=== PATIENT | female | born 2000 | race Caucasian/White ===

== ENCOUNTER 2018-02-09 18:54 | Emergency (ER) | payer MEDICAID, SELFPAY ==
[2018-02-09 20:01] LABS: KETONE, URINE AUTO RFX NEGATIVE (NEGATIVE); LEUKOCYTE ESTERASE UR AUTO RFX TRACE (NEGATIVE); NITRITE, URINE AUTO RFX NEGATIVE (NEGATIVE); RBC, URINE AUTO RFX 5 /HPF (0-3); SPECIFIC GRAVITY UR AUTO RFX 1.015 (1.002-1.035); SQUAM EPITHELIAL CELL UR AURFX 0 /HPF (0-6); WBC, URINE AUTO RFX 58 /HPF (0-3)
[2018-02-09 20:05] LABS: CONTROL LINE UCG INT CTR LINE PRESENT; URINE PREG TEST NEGATIVE (NEGATIVE)
[2018-02-09] MEDS: IBUPROFEN 600 MG TAB PO ×2 (21:41)
[2018-02-09 23:09] LABS: CHLAMYDIA DNA AMPLIFICATION NEGATIVE (NEGATIVE); GC DNA AMPLIFICATION NEGATIVE (NEGATIVE)
== END 2018-02-09 21:51 | disposition home or self-care (01) ==
LOC: M ED 18:54
DX: T83.39XA Other mechanical complication of intrauterine contraceptive device, initial encounter (principal); Y92.9 Unspecified place or not applicable; Y93.9 Activity, unspecified; R10.2 Pelvic and perineal pain; Z88.0 Allergy status to penicillin; Z91.030 Bee allergy status
CPT/HCPCS: 76856

== ENCOUNTER 2019-01-01 22:59 | Emergency (ER) | payer MEDICAID, OTHER ==
[~2019-01-01] VITALS: Ht 160 cm; Wt 79.5 kg
[~2019-01-01 22:59] MED LIST: BACT800T5 PO; IBUP-1022 PO
[2019-01-01] MEDS ORDERED: NS 1,000 ML IV ONE (23:30)
[2019-01-01] MEDS ORDERED: ONDANSETRON 4MG/2ML VIAL (J2405) IV ONE (23:30)
[2019-01-01] MEDS ORDERED: GI COCKTAIL 50ML BTL(HYOSCYAMINE/MAALOX/LIDOCAINE VISCOUS)(1:3:1) PO ONE (23:30)
[2019-01-01] MEDS ORDERED: PANTOPRAZOLE 40MG INJ (PROTONIX) (C9113) IV ONE (23:30)
[2019-01-01 23:43] LABS: BASO % 0.4 % (0.0-1.0); EOS # 0.1 10^3/uL (0.0-0.50); EOS % 0.8 % (0.0-3.0); HEMATOCRIT 35.7 % (36.0-47.0); HEMOGLOBIN 10.2 g/dl (12.0-15.5); LYMPH # 2.9 10^3/uL (1.5-6.5); LYMPH % 29.1 % (24.0-44.0); MEAN CORPUSCULAR HGB CONC 28.6 g/dl (32.0-36.5); MEAN CORPUSCULAR VOLUME 66.4 fl (80.0-96.0); MONO # 0.6 10^3/uL (0.0-0.8); MONO % 6.2 % (0.0-5.0); NEUTROPHILS # 6.4 10^3/uL (1.8-7.7); NEUTROPHILS % 63.3 % (36.0-66.0); PLATELET COUNT, AUTOMATED 403 10^3/uL (150-450); RED BLOOD COUNT 5.38 10^6/uL (4.00-5.40); WHITE BLOOD COUNT 10.1 10^3/uL (4.0-10.0)
[2019-01-02 00:04] LABS: HCG, SERUM QUALITATIVE NEGATIVE (NEGATIVE)
[2019-01-02] MEDS ORDERED: PROT1TAB2 PO (00:31)
[2019-01-02 00:39] LABS: ALBUMIN 3.9 GM/DL (3.2-5.2); ALT/SGPT 20 U/L (12-78); BILIRUBIN,DIRECT < 0.1 MG/DL (0.0-0.2); BILIRUBIN,TOTAL 0.3 MG/DL (0.2-1.0); BLOOD UREA NITROGEN 11 MG/DL (7-18); CALCIUM LEVEL 9.6 MG/DL (8.5-10.1); CARBON DIOXIDE LEVEL 22 MEQ/L (21-32); CHLORIDE LEVEL 106 MEQ/L (98-107); CREATININE FOR GFR 0.67 MG/DL (0.55-1.30); GLUCOSE, FASTING 97 MG/DL (70-100); LIPASE 182 U/L (73-393); POTASSIUM SERUM 4.8 MEQ/L (3.5-5.1); SODIUM LEVEL 135 MEQ/L (136-145); TOTAL PROTEIN 7.9 GM/DL (6.4-8.2)
[2019-01-02 00:44] VITALS: BP 124/70
--- NOTE | 2019-01-02 01:05 | REP ---
Clinical: Acute abdominal pain. Technique: Upright view of the chest with supine and upright views of the abdomen and pelvis. Findings: Frontal upright view of the chest demonstrates no acute cardiopulmonary process or free air below the diaphragm to suspect pneumoperitoneum. Supine and upright views of the abdomen and pelvis demonstrate nonspecific bowel gas pattern without obstruction or perforation. No organomegaly. No abnormal calcifications. Skeletal structures normal for age. Impression: Nonspecific bowel gas pattern. Electronically Signed by Reuben Griffiths MD 01/02/2019 12:56 A
== END 2019-01-02 00:48 | disposition home or self-care (01) ==
LOC: M ED 22:59
DX: R10.9 Unspecified abdominal pain (principal); R11.0 Nausea
CPT/HCPCS: 36415; 74021; 80048; 80076; 81001; 83690; 84703; 85025; 87086; 96361; 96374; 96375; 99284; C9113; J2405

== ENCOUNTER 2019-07-26 17:19 | Emergency (ER) | payer OTHER ==
[~2019-07-26] VITALS: Ht 160 cm; Wt 79.1 kg
[~2019-07-26 17:19] MED LIST changes: +PROT1TAB2 PO
[2019-07-26 18:30] LABS: BASO % 0.6 % (0.0-1.0); EOS # 0.1 10^3/uL (0.0-0.5); EOS % 1.4 % (0.0-3.0); HEMATOCRIT 34.4 % (36.0-47.0); HEMOGLOBIN 9.7 g/dl (12.0-15.5); LYMPH # 2.5 10^3/uL (1.5-5.0); LYMPH % 36.5 % (24.0-44.0); MEAN CORPUSCULAR HEMOGLOBIN 19.8 pg (27.0-33.0); MEAN CORPUSCULAR HGB CONC 28.2 g/dl (32.0-36.5); MEAN CORPUSCULAR VOLUME 70.2 fl (80.0-96.0); MONO # 0.4 10^3/uL (0.0-0.8); MONO % 5.5 % (0.0-5.0); NEUTROPHILS # 3.9 10^3/uL (1.5-8.5); NEUTROPHILS % 55.6 % (36.0-66.0); PLATELET COUNT, AUTOMATED 293 10^3/uL (150-450)
[2019-07-26 19:00] LABS: ALT/SGPT 18 U/L (12-78); BILIRUBIN,DIRECT < 0.1 MG/DL (0.0-0.2); BILIRUBIN,TOTAL 0.3 MG/DL (0.2-1.0); BLOOD UREA NITROGEN 12 MG/DL (7-18); CALCIUM LEVEL 9.5 MG/DL (8.5-10.1); CARBON DIOXIDE LEVEL 25 MEQ/L (21-32); CHLORIDE LEVEL 108 MEQ/L (98-107); GLOMERULAR FILTRATION RATE > 60.0 (>60); GLUCOSE, FASTING 84 MG/DL (70-100); LIPASE 152 U/L (73-393); POTASSIUM SERUM 3.8 MEQ/L (3.5-5.1); SODIUM LEVEL 141 MEQ/L (136-145); TOTAL PROTEIN 7.7 GM/DL (6.4-8.2)
[2019-07-26] MEDS ORDERED: ISOVUE-370 76% 100ML VIAL (Q9967) As Ordered ONE (19:55)
[2019-07-26] MEDS ORDERED: ONDANSETRON 4MG/2ML VIAL (J2405) IV ONE (20:00)
--- NOTE | 2019-07-26 21:20 | REPVR ---
PROCEDURE INFORMATION: Exam: CT Abdomen And Pelvis With Contrast Exam date and time: 07/26/2019 8:25 PM Age: 19 years old Clinical history: Abdominal pain and nausea x1 week. TECHNIQUE: Imaging protocol: Computed tomography of the abdomen and pelvis with intravenous contrast. Radiation optimization: All CT scans at this facility use at least one of these dose optimization techniques: automated exposure control; mA and/or kV adjustment per patient size (includes targeted exams where dose is matched to clinical indication); or iterative reconstruction. Contrast material: ISOVUE 370; Contrast volume: 100 ml; Contrast route: IV; COMPARISON: US PELVIC NON-OB COMPLETE 02/09/2018 8:27 PM FINDINGS: Lungs: The imaged lung bases are clear. Heart: No cardiomegaly. No pericardial effusion. Liver: No liver lesion is seen. The contour of the liver is smooth. The liver is enlarged and measures 16 cm in craniocaudal dimension at the level of the right midclavicular line. The attenuation of the liver is lower compared to the spleen, which can be seen with fatty liver infiltration. Gallbladder and bile ducts: No calcified gallstones are seen. No gallbladder wall thickening, pericholecystic fluid, or pericholecystic inflammatory changes are identified. No dilation of the intrahepatic or extrahepatic bile ducts is noted. Pancreas: Normal. No ductal dilation. Spleen: No splenic lesion is noted. The spleen is enlarged and measures 13.9 cm. Adrenals: Normal. No mass. Kidneys and ureters: The kidneys are normal in appearance. No renal lesion is identified. No calculi are seen in the kidneys or ureters. There is no hydronephrosis or hydroureter. There are no wedge-shaped areas of low attenuation in the kidneys to suggest pyelonephritis. There is no renal abscess or perinephric fluid collection. Stomach and bowel: There is no evidence for a bowel obstruction, diverticulosis, diverticulitis, colitis, pneumatosis intestinalis, intussusception, volvulus, or perforated viscus. Appendix: Normal. No evidence for appendicitis. Intraperitoneal space: Unremarkable. No fluid collection. No free air. Retroperitoneal space: Unremarkable. No fluid collection. No mass. Vasculature: The abdominal aorta is patent, normal in caliber, and there is no dissection. The renal arteries, celiac artery, superior mesenteric artery, inferior mesenteric artery, iliac arteries, and common femoral arteries are patent. The iliac veins, inferior vena cava, hepatic veins, portal veins, splenic vein, superior mesenteric vein, inferior mesenteric vein, and renal veins are patent. Lymph nodes: There are nonspecific subcentimeter mesenteric lymph nodes. No enlarged lymph nodes measuring greater than 1 cm in short axis are noted. Bladder: Unremarkable. No calculi or masses are noted in the bladder. Reproductive: The anteverted uterus and right ovary are unremarkable. Incidental note is made of a 1.9 cm corpus luteal cyst in the left ovary for which follow-up is not necessary. Bones/joints: The imaged bony structures are intact. There is no suspicious osteolytic or osteoblastic lesion. There are Schmorl's nodes in the lower thoracic spine and upper lumbar spine. Soft tissues: Unremarkable. No hernia. IMPRESSION: 1. No acute findings in the abdomen or pelvis. 2. Hepatosplenomegaly. Electronically signed by: Finn Wells On 07/26/2019 21:19:40 PM
[2019-07-26] MEDS ORDERED: FLAG500T PO (22:35)
[2019-07-26] MEDS ORDERED: ONDA4TAB6 PO (22:36)
[2019-07-26 22:56] VITALS: BP 107/70
[2019-07-26 23:43] LABS: CHLAMYDIA DNA AMPLIFICATION NEGATIVE (NEGATIVE); GC DNA AMPLIFICATION NEGATIVE (NEGATIVE)
--- NOTE | 2019-07-28 15:44 | ED PDOC ---
Post-Departure Follow-Up dr ochoa faxed formal report of ct abd/p for fu Lorena Yost MD Jul 28, 2019 15:44
== END 2019-07-26 22:58 | disposition home or self-care (01) ==
LOC: M ED 17:19
DX: N76.0 Acute vaginitis (principal); B96.89 Other specified bacterial agents as the cause of diseases classified elsewhere; R16.0 Hepatomegaly, not elsewhere classified; Z88.0 Allergy status to penicillin; Z91.030 Bee allergy status
CPT/HCPCS: 74177; 80048; 80076; 81001; 83690; 84702; 85025; 87210; 87661; 96374; 99284; J2405; Q9967

== ENCOUNTER 2019-10-25 18:44 | Emergency (ER) | payer OTHER ==
[~2019-10-25] VITALS: Ht 160 cm; Wt 76.5 kg
[~2019-10-25 18:44] MED LIST changes: +FLAG500T PO; +ONDA4TAB6 PO
[2019-10-25 20:17] LABS: APPEARANCE, URINE CLOUDY (CLEAR); BACTERIA, URINE AUTO NEGATIVE (NEGATIVE); BILIRUBIN, URINE AUTO NEGATIVE (NEGATIVE); BLOOD, URINE BLOOD NEGATIVE (NEGATIVE); COLOR, URINE YELLOW (YELLOW); GLUCOSE, URINE (UA) AUTO NEGATIVE (NEGATIVE); KETONE, URINE AUTO TRACE mg/dL (NEGATIVE); LEUKOCYTE ESTERASE, URINE AUTO 1+ (NEGATIVE); MUCUS, URINE SMALL (NEGATIVE); NITRITE, URINE AUTO NEGATIVE (NEGATIVE); PROTEIN, URINE AUTO NEGATIVE (NEGATIVE); RBC, URINE AUTO 1 /HPF (0-3); SPECIFIC GRAVITY URINE AUTO 1.026 (1.002-1.035); SQUAMOUS EPITHELIAL CELL UR AU 9 /HPF (0-6); WBC, URINE AUTO 0 /HPF (0-3)
[2019-10-25 20:21] LABS: BASO % 0.5 % (0.0-1.0); EOS # 0.1 10^3/uL (0.0-0.5); EOS % 0.6 % (0.0-3.0); HEMATOCRIT 33.6 % (36.0-47.0); HEMOGLOBIN 9.9 g/dl (12.0-15.5); LYMPH # 2.2 10^3/uL (1.5-5.0); LYMPH % 27.2 % (24.0-44.0); MEAN CORPUSCULAR HEMOGLOBIN 20.5 pg (27.0-33.0); MEAN CORPUSCULAR HGB CONC 29.5 g/dl (32.0-36.5); MEAN CORPUSCULAR VOLUME 69.4 fl (80.0-96.0); MONO # 0.5 10^3/uL (0.0-0.8); MONO % 5.6 % (0.0-5.0); NEUTROPHILS # 5.4 10^3/uL (1.5-8.5); PLATELET COUNT, AUTOMATED 306 10^3/uL (150-450); RED BLOOD COUNT 4.84 10^6/uL (4.00-5.40); WHITE BLOOD COUNT 8.2 10^3/uL (4.0-10.0)
--- NOTE | 2019-10-25 22:06 | REPVR ---
PROCEDURE INFORMATION: Exam: US , Transvaginal Exam date and time: 10/25/2019 9:20 PM Age: 19 years old Clinical indication: complicated by abdominal or pelvic pain; Lower; First trimester; Gestational age or lmp: Lmp( 09/13/19; ; Additional info: Pelvic cramping, positive hcg TECHNIQUE: Imaging protocol: Real-time transvaginal obstetrical ultrasound of the maternal pelvis and a first trimester with image documentation. Transvaginal imaging was used for better evaluation of the fetus and adnexa. COMPARISON: No relevant prior studies available. FINDINGS: Other findings: No adnexal masses. GESTATION: Gestation: Single gestational sac within the uterus. Single pole within the gestational sac measures 3.2 mm corresponding to gestation of 5 weeks 6 days. This corresponds to LMP of 09/13/2019. Small amount of perigestational fluid likely implantation related. Heart rate: heart rate 99 bpm. BIOMETRY: Estimated due date: SHARDA 06/20/2020. IMPRESSION: Relatively slow heart rate for this gestational age and otherwise unremarkable scan at 5 weeks 6 days using ultrasound measurements. Close interval follow-up suggested as clinically directed to exclude early failure and document appropriate interval growth. Detailed structural survey can be performed between 19-20 weeks if clinically desired. Electronically signed by: Maximiliano Malcolm On 10/25/2019 22:06:05 PM
[2019-10-25] MEDS ORDERED: ONDANSETRON 4 MG ORAL DISINTEGRATING TAB (Q0162 PER 1MG) PO ONE (23:00)
[2019-10-25] MEDS ORDERED: METOCLOPRAMIDE 10 MG TAB PO ONE (23:30)
[2019-10-25 23:44] VITALS: BP 131/74
== END 2019-10-26 00:04 | disposition home or self-care (01) ==
LOC: M ED 18:44
DX: O21.9 Vomiting of pregnancy, unspecified (principal); O99.89 Other specified diseases and conditions complicating pregnancy, childbirth and the puerperium; R10.9 Unspecified abdominal pain; O26.891 Other specified pregnancy related conditions, first trimester; M54.5 Low back pain; Z3A.01 Less than 8 weeks gestation of pregnancy; Z88.0 Allergy status to penicillin; Z91.030 Bee allergy status
CPT/HCPCS: 36415; 76801; 76817; 80047; 81001; 84702; 85025; 93976; 99284; Q0162

== ENCOUNTER → 2019-12-01 | Outpatient (REF) | payer OTHER, MEDICAID ==
[2019-12-01 14:01] LABS: HEMATOCRIT 34.3 % (36.0-47.0); HEMOGLOBIN 9.9 g/dl (12.0-15.5); MEAN CORPUSCULAR HEMOGLOBIN 19.9 pg (27.0-33.0); MEAN CORPUSCULAR HGB CONC 28.9 g/dl (32.0-36.5); PLATELET COUNT, AUTOMATED 290 10^3/uL (150-450); RED BLOOD COUNT 4.97 10^6/uL (4.00-5.40); WHITE BLOOD COUNT 8.2 10^3/uL (4.0-10.0)
[2019-12-01 16:22] LABS: CHLAMYDIA DNA AMPLIFICATION NEGATIVE (NEGATIVE); GC DNA AMPLIFICATION NEGATIVE (NEGATIVE)
[2019-12-02 12:07] LABS: HEPATITIS B SURFACE ANTIGEN NEGATIVE (NEGATIVE); HEPATITIS C VIRUS ABY INDEX 0.1 INDEX (<0.8); HIV 1&2 SCREEN CENTAUR NEGATIVE (NEGATIVE); RUBELLA IgG QUALITATIVE EQUIVOCAL (IMMUNE)
== END ==
LOC: M PLALAB 09:22
PROVIDERS: ATTEND Specialist
DX: Z34.01 Encounter for supervision of normal first pregnancy, first trimester (principal)

== ENCOUNTER → 2019-12-29 | Outpatient (REF) | payer OTHER, MEDICAID ==
[2019-12-29 14:17] LABS: PERCENT SATURATION 4.1 % (13.2-45.0)
== END ==
LOC: M PLALAB 09:41
PROVIDERS: ATTEND Advanced Practice Midwife
DX: Z34.02 Encounter for supervision of normal first pregnancy, second trimester (principal)

== ENCOUNTER → 2020-01-26 | Outpatient (REF) | payer OTHER, MEDICAID ==
[2020-01-26 18:50] LABS: FREE T4 1.12 NG/DL (0.76-1.46); THYROID STIMULATING HORMONE 1.79 uIU/ML (0.358-3.740)
[2020-01-26 18:53] LABS: TOTAL 25(OH) VITAMIN D 16.8 NG/ML (30.0-100.0)
== END ==
LOC: M PLALAB 15:22
PROVIDERS: ATTEND Advanced Practice Midwife
DX: F32.9 Major depressive disorder, single episode, unspecified (principal)

== ENCOUNTER → 2020-02-10 | Outpatient (CLI) | payer OTHER ==
--- NOTE | 2020-02-11 08:19 | REP ---
Clinical: Anatomical evaluation. Comparison: Cephalic . Findings: Examination demonstrates a single live intrauterine in cephalic presentation. motion is identified by technologist. Placenta is noted posterior and grade I without evidence for placenta previa or abruption. Amniotic fluid volume is normal. Cervix measures 3.4 cm in length and appears closed. No evidence for nuchal cord. Gestational age by LMP see 21 weeks 3 days with SHARDA 06/19/2020 Gestational age by current measurements 21 weeks 3 days with SHARDA 06/19/2020 . FHR equals 142 beats per minute. Estimated weight 420 grams ( 44th percentile). Anatomical assessment demonstrates normal structures including heart and cardiac ventricular outflow tracts. Impression: Single live intrauterine in cephalic presentation demonstrating appropriate estimated weight and growth. In conjunction with prior examination anatomical assessment is complete and normal.
== END ==
LOC: M WHC 12:47
PROVIDERS: ATTEND Advanced Practice Midwife
DX: Z34.02 Encounter for supervision of normal first pregnancy, second trimester (principal); Z36.2 Encounter for other antenatal screening follow-up; Z3A.21 21 weeks gestation of pregnancy

== ENCOUNTER → 2020-03-23 | Outpatient (REF) | payer MEDICAID, OTHER ==
[~2020-03-23] MED LIST changes: +DIBU10OI TOP; +DOCU100C16 PO; +IBUP80TA PO; +IRON65TA2 PO; +PRENTAB9 PO
[2020-03-23 13:40] LABS: HEMOGLOBIN 11.8 g/dl (12.0-15.5); MEAN CORPUSCULAR HEMOGLOBIN 25.9 pg (27.0-33.0); MEAN CORPUSCULAR HGB CONC 31.1 g/dl (32.0-36.5); MEAN CORPUSCULAR VOLUME 83.5 fl (80.0-96.0); PLATELET COUNT, AUTOMATED 231 10^3/uL (150-450); RED BLOOD COUNT 4.55 10^6/uL (4.00-5.40)
== END ==
LOC: M PLALAB 10:33
PROVIDERS: ATTEND Advanced Practice Midwife
DX: O99.012 Anemia complicating pregnancy, second trimester (principal)

== ENCOUNTER → 2020-05-24 | Outpatient (REF) | payer OTHER, MEDICAID | LOC: M SFHCWAGY 17:18 | PROVIDERS: ATTEND Obstetrics & Gynecology | DX: Z34.83 Encounter for supervision of other normal pregnancy, third trimester (principal); Z3A.00 Weeks of gestation of pregnancy not specified ==

== ENCOUNTER 2020-06-18 07:06 | Inpatient (IN) | payer OTHER, MEDICAID ==
[~2020-06-18] VITALS: Ht 160 cm; Wt 97.4 kg
[2020-06-18] VITALS (12 sets, daily range): BP systolic 122–150; BP diastolic 64–84
[~2020-06-18 07:06] MED LIST changes: -DIBU10OI TOP; -DOCU100C16 PO; -IBUP80TA PO; -IRON65TA2 PO; -PRENTAB9 PO
[2020-06-18] MEDS ORDERED: PRENTAB9 PO (07:33)
[2020-06-18] MEDS ORDERED: IRON65TA2 PO (07:33)
[2020-06-18] MEDS ORDERED: LR 1,000 ML IV SCH (09:28)
[2020-06-18] MEDS ORDERED: LACTATED RINGER'S 1000 ML IV STA (09:28)
[2020-06-18 09:41] LABS: BASO % 0.3 % (0.0-1.0); EOS # 0.1 10^3/uL (0.0-0.5); EOS % 0.8 % (0.0-3.0); HEMATOCRIT 37.6 % (36.0-47.0); LYMPH # 1.8 10^3/uL (1.5-5.0); LYMPH % 19.4 % (24.0-44.0); MEAN CORPUSCULAR HEMOGLOBIN 26.1 pg (27.0-33.0); MEAN CORPUSCULAR HGB CONC 31.9 g/dl (32.0-36.5); MEAN CORPUSCULAR VOLUME 81.7 fl (80.0-96.0); MONO # 0.6 10^3/uL (0.0-0.8); MONO % 6.8 % (0.0-5.0); NEUTROPHILS # 6.5 10^3/uL (1.5-8.5); NEUTROPHILS % 72.1 % (36.0-66.0); PLATELET COUNT, AUTOMATED 215 10^3/uL (150-450); WHITE BLOOD COUNT 9.1 10^3/uL (4.0-10.0)
[2020-06-18] MEDS: PROMETHAZINE INJ 25 MG/ML VIAL (J2550) IV PRN ×2 (11:28→15:38)
[2020-06-18] MEDS: BUTORPHANOL 2 MG/ML INJ (J0595) IV PRN ×2 (11:28→15:38)
--- NOTE | 2020-06-18 11:39 | HPEPDOC ---
Obstetrical History & Physical General Date of Admission Jun 18, 2020 at 08:16 History of Present Illness Sweta is a 20yo with SIUP at 39w6d by lmp c/w early u/s presenting this morning with regular, painful ctx. No LOF. No vaginal bleeding. Good movement. No fevers/chills. Chief Complaint: Contractions, term Information Provided By: Patient Care Care: Good Care Dating Final EDC: Jun 19, 2020 Final EDC by: LMP, 1st trimester (US) Antepartum Course Diagnos(e)s Rubella equivocal, anemia, obesity (BMI 31) Height (inches): 63 Pre- weight (lbs.): 176 Past Medical History Past Obstetrical History : Past Obstetrical History: [employer] History: No pertinent history Past Medical History Medical History Obesity (BMI 31), history of depression currently stable on no meds Surgical History: Denies/None Family History Significant Family History: Cancer (maternal grandma, ovarian cancer) Social History Family situation: Spouse/partner home Psychosocial History: Depression * Smoker: non-smoker Alcohol: Denies Drugs: marijuana (until 6mo gestation) Allergies Coded Allergies: Penicillins (Verified Allergy, Unknown, UNKNOWN , 01/01/19) bee venom protein (honey bee) (Verified Allergy, Unknown, UNKNOWN , 01/01/19) Medications Scheduled Ferrous Sulfate (Iron) 325 Mg Tablet, 1 TAB PO BID No.137/Iron/Folic Acd ( Vitamin Tablet) 1 Each Tablet, 1 TAB PO DAILY Physical Examination Physical Examination GENERAL: Alert and oriented times three. ABDOMEN: Gravid and non-tender to touch. FETUS: Is vertex (VTX) by sterile vaginal examination (SVE) EXTREMITIES: No edema. Vital Signs/I&O Vital Signs Date Time Temp Pulse Resp B/P (MAP) Pulse Ox O2 Delivery O2 Flow Rate FiO2 06/18/20 10:43 97.8 104 18 135/83 (100) Laboratory Data 24H LABS Laboratory Tests 2 06/18/20 08:21: Serology Scanned Report Hepatitis B Testing 06/18/20 09:09: Immature Granulocyte % (Auto) 0.6, Neutrophils (%) (Auto) 72.1H, Lymphocytes (%) (Auto) 19.4L, Monocytes (%) (Auto) 6.8H, Eosinophils (%) (Auto) 0.8, Basophils (%) (Auto) 0.3, Neutrophils # (Auto) 6.5, Lymphocytes # (Auto) 1.8, Monocytes # (Auto) 0.6, Eosinophils # (Auto) 0.1, Basophils # (Auto) 0.0, Nucleated Red Blood Cells % (auto) 0.0 CBC/BMP Laboratory Tests 06/18/20 09:09 Pertinent Laboratoy Data Blood Type: B+ RBC Antibody Screen: Negative HIV: Negative Hepatitis B: Negative Hepatitis C: Negative Rapid Plasma Reagin: Nonreactive Rubella: Nonreactive Varicella: Unknown Chlamydia/Gonorrhea: Negative Group B Streptococcus: Negative Glucose Tolerance Test: 99 Anatomy Ultrasound Ultrasound Date: January 20, 2020 Placenta Location: Posterior Normal Anatomy: Yes Placenta Previa: No Other Ultrasounds 02/10 follow up anatomy for VOTs, wnl. Anatomy complete and wnl. Steroid Therapy Steroid Therapy: No Vaginal Examination Dilation: 5 cm Effacement: 80% Station: -2 Cervical Consistency: Soft Cervical Position: Middle Presentation: Cephalic presentation Assessment Heart Rate (FHR): 130 Variability: Moderate Accelerations: Positive Decelerations: None Tocometer Contractions: Yes Frequency: regular, every 3-7 min. Duration: greater than 60 seconds Strength: palpated as strong Assessment/Plan Assessment Sweta is a 20yo with SIUP at 39w6d by lmp c/w early u/s in active labor with initial SCE 4-5/75/-2 and regular painful ctx. Intact. Cephalic. GBS negative. Vitals wnl, benign exam. Cat I FHRT. Plan Admit and orient. Back Facer and consent. Diet: clear liquids Group B Streptococcus (GBS) negative Labs and intravenous (IV) per unit protocol. Lactated Ringers (LR): Bolus 800 mL, then at 125 mL/hr if epidural desired Anticipate normal spontaneous delivery () Ok for IV stadol/phenergan in early labor if desired MD Shannan Garrido Katrina D MD Jun 18, 2020 11:39
--- NOTE | 2020-06-18 11:43 | IPNPDOC ---
Text Note Date of Service The patient was seen on 06/18/20. NOTE Intrapartum Note Pt doing well, ctx getting stronger. Vitals wnl Cat I FHRT AROM performed at approx 11:30 with clear fluid noted, well tolerated. SCE now /-2. Pt now desiring some IV pain medication. Will continue to closely observe Plan to re-check in 2-4hr or earlier as indicated Safe to proceed Juany Campbell MD VS,Bren, I+O VS, Bren I+O Laboratory Tests 06/18/20 09:09 Vital Signs Date Time Temp Pulse Resp B/P (MAP) Pulse Ox O2 Delivery O2 Flow Rate FiO2 06/18/20 10:43 97.8 104 18 135/83 (100) Juany Campbell MD Jun 18, 2020 11:43
--- NOTE | 2020-06-18 13:57 | IPNPDOC ---
Text Note Date of Service The patient was seen on 06/18/20. NOTE Intrapartum Note Pt doing well, breathing through ctx. Had relief with stadol earlier but wearing off. Does not yet desire epidural. Vitals wnl, afebrile Cat I FHRT with ctx q3-4min SCE: 7/80/-2 Will continue to closely observe Plan to recheck in 2-4hr or earlier as indicated Safe to proceed Juany Campbell MD VS,Bren, I+O VSBren I+O Laboratory Tests 06/18/20 09:09 Vital Signs Date Time Temp Pulse Resp B/P (MAP) Pulse Ox O2 Delivery O2 Flow Rate FiO2 06/18/20 13:22 89 129/69 (89) 06/18/20 12:35 98.6 18 06/18/20 11:28 Room Air Juany Campbell MD Jun 18, 2020 13:57
--- NOTE | 2020-06-18 16:42 | IPNPDOC ---
Text Note Date of Service The patient was seen on 06/18/20. NOTE Intrapartum Note Pt coping ok, received another dose of IV stadol so intermittently sleeping and waking with ctx. Still declines epidural. Vitals overall wnl Cat I-II FHRT for min-mod variability 2/2 stadol, +accels, -decels Ctx q2-4min SCE now 8/-2. Will continue to closely observe Plan to re-check in 2-4hr or earlier as indicated Safe to proceed Juany Campbell MD VS,Bren, I+O VS, Bren I+O Laboratory Tests 06/18/20 09:09 Vital Signs Date Time Temp Pulse Resp B/P (MAP) Pulse Ox O2 Delivery O2 Flow Rate FiO2 06/18/20 15:38 20 Room Air 06/18/20 14:58 86 135/83 (100) 06/18/20 14:52 98.1 Juany Campbell MD Jun 18, 2020 16:42
[2020-06-18] MEDS ORDERED: OXYTOCIN 30 UNITS IN 0.9% NaCl 500ML IV BAG (J2590) As Ordered ONE (18:05)
[2020-06-18] MEDS ORDERED: LIDOCAINE 1% MDV 50ML VIAL As Ordered ONE (19:11)
[2020-06-18] MEDS ORDERED: OXYTOCIN DRIP 30 UNITS in IV 1 EA IV SCH (20:24)
[2020-06-18] MEDS ORDERED: MEASLES,MUMPS,RUBELLA VACCINE INJ (MMR-II) (90707) SC SCH (20:30)
[2020-06-18] MEDS ORDERED: ACETAMINOPHEN TAB 650MG DOSE (2X325MG) PO PRN (20:30)
[2020-06-18] MEDS ORDERED: DOCUSATE SODIUM 100 MG CAP PO PRN (20:30)
[2020-06-18] MEDS ORDERED: IBUPROFEN 600MG TAB PO PRN (20:30)
[2020-06-18] MEDS ORDERED: RHOGAM 300 MCG (1500 IU) INJ (J2790) IM SCH (20:30)
[2020-06-18] MEDS ORDERED: LIDOCAINE 1% MDV 20ML VIAL INFIL ONE ×2 (20:30)
--- NOTE | 2020-06-18 20:40 | DNPDOC ---
[facility] Delivery Note Delivery Note DATE OF DELIVERY: 06/18/2020 PREDELIVERY DIAGNOSIS: 39w6d gestation and labor. POST DELIVERY DIAGNOSIS: Delivered. PROCEDURE: Spontaneous vaginal delivery POSTAL DELIVERY OFFICER: Dr. Juany Campbell MD ANESTHESIA: 1% lidocaine for repair ESTIMATED BLOOD LOSS: 350 mL. FINDINGS: 8 pound 8 ounce (3860g) male , Score 7/9, nuchal cord times 1 DELIVERY SUMMARY: Sweta is a 20yo female who is now a s/p uncomplicated after presenting to L&D in active labor, delivering at 1902 on 06/18/20. She progressed without need for augmentation other than AROM which was clear. At C/C/+1 she began pushing and infant's head eventually delivered OA, restituted HINA. One nuchal cord reduced. The right anterior shoulder delivered with ease and the corpus immediately followed. The was placed on the maternal a bdomen, spontaneous cry noted. Nose and mouth suctioned with bulb suction, apgars 7/9. The cord was clamped and cut by the FOB. A 3-vessel cord was noted. With traction on the cord and uterine massage, placenta delivered spontaneously and intact with centrally inserted cord. IV pitocin given per protocol. More uterine massage performed and fundus then firm at u-2cm. Inspection of vagina and perineum revealed extensive bilateral labial lacerations, both repaired with 2-0 vicryl in routine fashion after anesthetizing with 1% lidocaine with excellent reapproximation and complete hemostasis. Both mom and baby were doing well when I left the room. All counts of instruments and sponges are correct. MD Shannan Garrido Katrina D MD Jun 18, 2020 20:40
[2020-06-18] MEDS ORDERED: LIDOCAINE 1% MDV 50ML VIAL INFIL ONE (21:15)
[2020-06-18] MEDS: DIBUCAINE 1% OINTMENT 30GM TOP PRN (21:54)
[2020-06-18] MEDS: IBUPROFEN 800 MG TAB PO PRN (21:55)
[2020-06-19 06:08] VITALS: BP 115/79
[2020-06-19] MEDS: PRENATAL VITAMINS CHEWABLE TABLET PO SCH (07:15)
[2020-06-19] MEDS: IBUPROFEN 800 MG TAB PO PRN ×2 (07:15→16:11)
[2020-06-19] MEDS: DIBUCAINE 1% OINTMENT 30GM TOP PRN ×2 (07:30→13:00)
[2020-06-19 07:56] VITALS: BP 113/71
[2020-06-19] MEDS: ACETAMINOPHEN 500 MG TAB PO PRN ×2 (09:28→19:42)
--- NOTE | 2020-06-19 14:11 | IPNPDOC ---
Progress Note Date of Service: Jun 19, 2020 Day#: 1 Progress Note PPD1 SUBJECT: Sweta is a 20yo female who is now a s/p uncomplicated after presenting to L&D in active labor, delivering at 190 on 06/18/20, doing well day # 1. She has been ambulating, voiding spontaneously without issue and tolerating regular diet. Bottle feeding without issue. Reports lochia is like a normal period. She has a lot of pressure/pain in her vaginal/rectal area since delivery, likely related to pushing and the extensive bilateral labial repair needed. OBJECTIVE: VITAL SIGNS: Within normal limits, afebrile. Alert and oriented times three. Abdomen: Fundus firm at U-2. Soft, NTTP. Extremities: no pain with palpation of calves ASSESSMENT: Sweta is a 20yo female who is now a s/p uncomplicated after presenting to L&D in active labor, delivering at 190 on 06/18/20, doing well day # 1. Vitals within normal limits, afebrile, hemodynamically stable with no evidence of infection. PLAN: 1. Routine care 2. Tylenol and Motrin for pain. Witch nestor pads. 3. Encourage ambulation. 4. Regular diet 5. Undecided on contraception Juany Campbell MD VS, I&O, 24H, Fishbone Vital Signs/I&O Vital Signs Date Time Temp Pulse Resp B/P (MAP) Pulse Ox O2 Delivery O2 Flow Rate FiO2 06/19/20 07:56 97.8 92 18 113/71 (85) 06/19/20 06:08 97 Room Air I&O- Last 24 Hours up to 6 AM 06/19/20 06:00 Intake Total 1800 ml Output Total 1275 ml Balance 525 ml Juany Campbell MD Jun 19, 2020 14:11
[2020-06-19 17:58] VITALS: BP 115/64
[2020-06-20] MEDS: IBUPROFEN 800 MG TAB PO PRN ×2 (03:55→14:29)
[2020-06-20 06:00] VITALS: BP 122/87
--- NOTE | 2020-06-20 06:24 | IPNPDOC ---
Progress Note Date of Service: Jun 20, 2020 Day#: 2 Progress Note PPD 2 SUBJECT: Sweta is a 20yo female who is now a s/p uncomplicated after presenting to L&D in active labor, delivering at 190 on 06/18/20, doing well day # 2. She has been ambulating, voiding spontaneously without issue and tolerating regular diet. Bottle feeding without issue. Baby is currently under bili light. Reports lochia is like a normal period. She continues to have pressure/pain in her vaginal/rectal area since delivery, likely related to pushing and the extensive bilateral labial repair needed, but has improved since yesterday. OBJECTIVE: VITAL SIGNS: Within normal limits, afebrile. Alert and oriented times three. Abdomen: Fundus firm at U-2. Soft, NTTP. Extremities: no pain with palpation of calves ASSESSMENT: Sweta is a 20yo female who is now a s/p uncomplicated after presenting to L&D in active labor, delivering at 190 on 06/18/20, doing well day # 2. Vitals within normal limits, afebrile, hemodynamically stable with no evidence of infection. PLAN: 1. Discharge home today if baby no longer needs bili light 2. Tylenol and Motrin for pain. Witch nestor pads. 3. Encourage ambulation. 4. Regular diet 5. Plans to use condoms for contraception Juany Campbell MD VS, I&O, 24H, Fishbone Vital Signs/I&O Vital Signs Date Time Temp Pulse Resp B/P (MAP) Pulse Ox O2 Delivery O2 Flow Rate FiO2 06/19/20 17:58 97.7 95 18 115/64 (81) 06/19/20 06:08 97 Room Air I&O- Last 24 Hours up to 6 AM 06/20/20 06:00 Intake Total 720 ml Output Total 200 ml Balance 520 ml Juany Campbell MD Jun 20, 2020 06:24
[2020-06-20] MEDS ORDERED: IBUP80TA PO (06:31)
[2020-06-20] MEDS ORDERED: DIBU10OI TOP (06:31)
[2020-06-20] MEDS ORDERED: DOCU100C16 PO (06:31)
--- NOTE | 2020-06-20 06:35 | DS.PDOC ---
Discharge Summary General Date of Admission Jun 18, 2020 at 08:16 Date of Discharge Jun 20, 2020 Discharge Summary PROCEDURES PERFORMED DURING STAY: spontaneous vaginal delivery ADMITTING DIAGNOSES: 1. Active labor at term DISCHARGE DIAGNOSES: 1. Active labor at term, delivered COMPLICATIONS/CHIEF COMPLAINT: LABOR. HISTORY OF PRESENT ILLNESS/HOSPITAL COURSE: Sweta is a 20yo female who is now a s/p uncomplicated after presenting to L&D in active labor, delivering at 1902 on 06/18/20, doing well day # 2. She has had a benign course. At time of discharge, vitals within normal limits, afebrile, hemodynamically stable with no evidence of infection. DISCHARGE MEDICATIONS: Please see below. ALLERGIES: Please see below. PHYSICAL EXAMINATION ON DISCHARGE: VITAL SIGNS: Within normal limits, afebrile. Alert and oriented times three. Abdomen: Fundus firm at U-2. Soft, NTTP. Extremities: no pain with palpation of calves LABORATORY DATA: Please see below. DISPOSITION: home DISCHARGE INSTRUCTIONS: 1. Discharge home 2. Rx Motrin for pain. Rx dibucaine and colace. 3. Plans to use condoms for contraception 4. 6 weeks vaginal rest no heavy lifting 5. Regular diet 6. Return precautions discussed at length 7. Follow up visit in 6wk at [facility] DISCHARGE CONDITION: Stable TIME SPENT ON DISCHARGE: Greater than 20 minutes. Juany Campbell MD Vital Signs/I&Os Vital Signs Date Time Temp Pulse Resp B/P (MAP) Pulse Ox O2 Delivery O2 Flow Rate FiO2 06/20/20 06:00 97.2 92 16 122/87 (99) 06/19/20 06:08 97 Room Air I&O- Last 24 Hours up to 6 AM 06/20/20 06:00 Intake Total 720 ml Output Total 200 ml Balance 520 ml Discharge Medications Scheduled Ferrous Sulfate (Iron) 325 Mg Tablet, 1 TAB PO BID, (Reported) No.137/Iron/Folic Acd ( Vitamin Tablet) 1 Each Tablet, 1 TAB PO DAILY, (Reported) Scheduled PRN Dibucaine (Dibucaine) 28 Gm Oint...g., 1 DOSE TOP Q4HP PRN for PAIN Docusate Sodium (Docusate Sodium) 100 Mg Capsule, 100 MG PO QHSP PRN for CONSTIPATION Ibuprofen (Ibuprofen) 800 Mg Tablet, 800 MG PO Q8HP PRN for PAIN LEVEL 6-10 Allergies Coded Allergies: Penicillins (Verified Allergy, Unknown, UNKNOWN , 01/01/19) bee venom protein (honey bee) (Verified Allergy, Unknown, UNKNOWN , 01/01/19) Juany Campbell MD Jun 20, 2020 06:35
[2020-06-20] MEDS: PRENATAL VITAMINS CHEWABLE TABLET PO SCH (09:00)
== END 2020-06-20 14:40 | disposition home or self-care (01) | DRG 560 ==
LOC: M LDO 07:06 → M LDI 08:16 → M OBS 21:35
PROVIDERS: ADMIT Obstetrics & Gynecology; ATTEND Obstetrics & Gynecology
PROC: 10E0XZZ Delivery of Products of Conception, External Approach (ICD-10-PCS; principal; 2020-06-18)
PROC: 0HQ9XZZ Repair Perineum Skin, External Approach (ICD-10-PCS; 2020-06-18)
PROC: 10907ZC Drainage of Amniotic Fluid, Therapeutic from Products of Conception, Via Natural or Artificial Opening (ICD-10-PCS; 2020-06-18)
DX: O99.214 Obesity complicating childbirth (principal); E66.9 Obesity, unspecified; O99.02 Anemia complicating childbirth; D64.9 Anemia, unspecified; Z3A.39 39 weeks gestation of pregnancy; Z37.0 Single live birth; O70.0 First degree perineal laceration during delivery

== ENCOUNTER 2020-07-22 14:19 | Emergency (ER) | payer OTHER, MEDICAID ==
[~2020-07-22] VITALS: Ht 160 cm; Wt 83.5 kg
[~2020-07-22 14:19] MED LIST changes: +DIBU10OI TOP; +DOCU100C16 PO; +IBUP80TA PO; +IRON65TA2 PO; +PRENTAB9 PO
[2020-07-22] MEDS ORDERED: BACT800T5 PO (16:38)
[2020-07-22 16:46] VITALS: BP 119/76
[2020-07-22 17:01] LABS: CHLAMYDIA DNA AMPLIFICATION NEGATIVE (NEGATIVE); GC DNA AMPLIFICATION NEGATIVE (NEGATIVE)
== END 2020-07-22 16:49 | disposition home or self-care (01) ==
LOC: M ED 14:19
DX: N39.0 Urinary tract infection, site not specified (principal); Z88.0 Allergy status to penicillin; Z91.030 Bee allergy status

== ENCOUNTER → 2020-09-13 | Outpatient (REF) | payer OTHER, MEDICAID | LOC: M SFHCWAGY 17:18 | PROVIDERS: ATTEND Obstetrics & Gynecology | DX: Z12.4 Encounter for screening for malignant neoplasm of cervix (principal) ==

== ENCOUNTER → 2021-04-27 | Outpatient (REF) | payer MEDICAID, OTHER ==
[~2021-04-27] MED LIST changes: -DIBU10OI TOP; +DIBU28OI2 TOP
== END ==
LOC: M SFHCADAM 11:16
PROVIDERS: ATTEND Family Medicine
DX: F41.8 Other specified anxiety disorders (principal)

== ENCOUNTER 2021-12-11 17:55 | Emergency (ER) | payer OTHER, MEDICAID ==
[~2021-12-11] VITALS: Ht 160 cm; Wt 86.4 kg
[2021-12-11] MEDS ORDERED: ACET-683 PO (18:03)
[2021-12-11] MEDS ORDERED: LIDOCAINE VISCOUS 2% SOLN 15ML UDC SSP ONE ×2 (21:05→21:35)
[2021-12-11] MEDS ORDERED: LIDO2SOL17 PO ×2 (21:23→21:28)
[2021-12-11 21:43] VITALS: BP 127/77
== END 2021-12-11 21:46 | disposition home or self-care (01) ==
LOC: M ED 17:55
DX: K02.9 Dental caries, unspecified (principal); K05.00 Acute gingivitis, plaque induced; K13.79 Other lesions of oral mucosa; K08.89 Other specified disorders of teeth and supporting structures; F17.200 Nicotine dependence, unspecified, uncomplicated; Z88.0 Allergy status to penicillin; Z91.030 Bee allergy status

== ENCOUNTER → 2024-10-19 | Outpatient (CLI) | payer MEDICAID, OTHER ==
[~2024-10-19] MED LIST changes: +ACET-683 PO; +LIDO15SO8 PO; +ONDA-282 PO; -ONDA4TAB6 PO
[2024-10-19 14:04] LABS: HEMATOCRIT 27.4 % (36.0-47.0); HEMOGLOBIN 7.4 g/dl (12.0-15.5); MEAN CORPUSCULAR HEMOGLOBIN 17.2 pg (27.0-33.0); MEAN CORPUSCULAR VOLUME 63.9 fl (80.0-96.0); PLATELET COUNT, AUTOMATED 242 10^3/uL (150-450); RED BLOOD COUNT 4.29 10^6/uL (4.00-5.40); WHITE BLOOD COUNT 8.2 10^3/uL (4.0-10.0)
[2024-10-19 14:54] LABS: Trichomonas vaginalis (AMP) NOT DETECTED (NEGATIVE)
[2024-10-19 15:12] LABS: HIV 1&2 SCREEN NEGATIVE (NEGATIVE)
[2024-10-19 15:17] LABS: GC DNA AMPLIFICATION NEGATIVE (NEGATIVE)
== END ==
LOC: M PLALAB 11:18
PROVIDERS: ATTEND Specialist
DX: Z34.81 Encounter for supervision of other normal pregnancy, first trimester (principal); Z3A.00 Weeks of gestation of pregnancy not specified

== ENCOUNTER → 2024-11-12 | Outpatient (REF) | payer OTHER, MEDICAID ==
[2024-11-12 19:27] LABS: IRON (FE) 10 UG/DL (50-170)
[2024-11-12 19:28] LABS: PERCENT SATURATION 2.1 % (13.2-45.0); TOTAL IRON BINDING CAPACITY 478 UG/DL (250-425)
[2024-11-12 19:31] LABS: FERRITIN 3.3 NG/ML (7.3-270.7); FOLATE > 24.00 NG/ML (>5.4)
[2024-11-12 19:33] LABS: VITAMIN B12 LEVEL 454 PG/ML (211-911)
[2024-11-16 13:12] LABS: TRANSFERRIN 407 mg/dL (188-341)
== END ==
LOC: M PLALAB 15:08
PROVIDERS: ATTEND Obstetrics & Gynecology
DX: D64.9 Anemia, unspecified (principal)

== ENCOUNTER → 2024-12-02 | Outpatient (CLI) | payer OTHER ==
[~2024-12-02] MED LIST changes: +PNV1TABL16 PO
[2024-12-02 18:04] LABS: ALBUMIN 3.1 G/DL (3.2-5.2); ALKALINE PHOSPHATASE 64 U/L (35-104); ALT/SGPT 36 U/L (7.0-40); AST/SGOT 40 U/L (<34); BILIRUBIN,TOTAL 0.2 MG/DL (0.3-1.2); BLOOD UREA NITROGEN 11 MG/DL (9-23); CALCIUM LEVEL 8.9 MG/DL (8.5-10.1); CARBON DIOXIDE LEVEL 23 MMOL/L (20-31); CHLORIDE LEVEL 108 MMOL/L (98-107); CREATININE FOR GFR 0.39 MG/DL (0.55-1.30); GLOMERULAR FILTRATION RATE > 60.0 (>60); GLUCOSE, FASTING 79 MG/DL (60-100); POTASSIUM SERUM 4.2 MMOL/L (3.5-5.1); SODIUM LEVEL 140 MMOL/L (136-145); TOTAL PROTEIN 6.9 G/DL (5.7-8.2)
== END ==
LOC: M PLALAB 15:48
PROVIDERS: ATTEND Obstetrics & Gynecology
DX: D50.9 Iron deficiency anemia, unspecified (principal)

== ENCOUNTER → 2024-12-17 | Outpatient (CLI) | payer OTHER | LOC: M WHC 14:52 | PROVIDERS: ATTEND Obstetrics & Gynecology | DX: Z36.89 Encounter for other specified antenatal screening (principal) ==

== ENCOUNTER → 2025-04-19 | Outpatient (REF) | payer OTHER, MEDICAID | LOC: M PLALAB 15:38 | PROVIDERS: ATTEND Nurse Practitioner Family | DX: Z36.89 Encounter for other specified antenatal screening (principal); Z3A.36 36 weeks gestation of pregnancy ==

== ENCOUNTER → 2025-05-10 | Outpatient (CLI) | payer OTHER ==
[~2025-05-10] MED LIST changes: -IBUP-1022 PO; +IBUP600T42 PO
[2025-05-10 18:36] LABS: PLATELET COUNT, AUTOMATED 212 10^3/uL (150-450)
== END ==
LOC: M PLALAB 15:19
PROVIDERS: ATTEND Nurse Practitioner Family
DX: O99.013 Anemia complicating pregnancy, third trimester (principal)

== ENCOUNTER 2025-08-31 09:35 | Outpatient (CLI) | payer OTHER ==
[~2025-08-31] VITALS: Ht 160 cm; Wt 83.6 kg
[~2025-08-31 09:35] MED LIST changes: +ALBUTEROL SULFATE 2.5 MG/0.5 ML INH CONCENTRATE NEB SOLN INH PRN; +EPINEPHrine INJ 1 MG/ML 1ML AMP IM PRN; +diphenhydrAMINE 50 MG/ML VIAL IV PRN
[2025-08-31 09:50] VITALS: BP 128/74; O2SAT 100
[2025-08-31] MEDS: ACETAMINOPHEN 650MG PO PRIOR TO INFUSION PO ONE (10:05)
[2025-08-31] MEDS: IRON SUCROSE 300 MG in NS 250 ML IV ONE (11:05)
[2025-08-31 12:55] VITALS: BP 149/75; O2SAT 100
== END 2025-08-31 13:00 | disposition home or self-care (01) ==
LOC: M INFU 09:35
PROVIDERS: ATTEND Student in an Organized Health Care Education/Training Program
DX: D50.9 Iron deficiency anemia, unspecified (principal); Z88.0 Allergy status to penicillin; Z91.030 Bee allergy status
CPT/HCPCS: 96365; 96366; J1756